=== PATIENT | male | born 1960 | race Caucasian/White ===

== ENCOUNTER 2021-08-28 06:30 | Inpatient (IN) ==
[2021-08-28] MEDS ORDERED: *HR* FentaNYL (PF) 100 MCG/2 ML VIAL IVP PRN (06:59)
[2021-08-28] MEDS ORDERED: CeFAZolin Syr 2,000MG/20 ML 2,000 MG/20 ML SYRINGE IVPB ONE (07:13)
[2021-08-28] MEDS ORDERED: Ringers Solution, Lactated 1,000 ML IVC SCH ×2 (07:15→07:45)
[2021-08-28] MEDS ORDERED: *HR* Rocuronium Bromide 50 MG/5 ML VIAL ONE ×2 (07:23→09:30)
[2021-08-28] MEDS ORDERED: *HR* Midazolam HCl 2 MG/2 ML VIAL ONE (07:23)
[2021-08-28] MEDS ORDERED: *HR* Succinylcholine 200 MG/10 ML VIAL IVP ONE (07:23)
[2021-08-28] MEDS ORDERED: *HR* FentaNYL (PF) 100 MCG/2 ML VIAL ONE ×2 (07:23→08:29)
[2021-08-28] MEDS ORDERED: Ondansetron 4 MG/2 ML VIAL ONE (07:23)
[2021-08-28] MEDS ORDERED: Lidocaine HCL 4 ML Topical Solution (Laryng-O-Jet Kit Sterile Pak) TP ONE (07:23)
[2021-08-28] MEDS ORDERED: Lidocaine -MPF 2% 5 ML VIAL ONE (07:23)
[2021-08-28] MEDS ORDERED: *HR* Propofol 200 MG/20 ML VIAL IVP ONE (07:24)
[2021-08-28] MEDS: *HR* HYDROmorphone PF 0.5 MG/0.5 ML SYRINGE IVP PRN ×4 (10:09→10:37)
[2021-08-28] MEDS ORDERED: 0.9 % Sodium Chloride 1,000 ML IVC SCH (11:39)
[2021-08-28] MEDS ORDERED: Naloxone 0.4 MG/ML INJ IVP PRN ×2 (11:39→13:11)
[2021-08-28] MEDS ORDERED: Ondansetron 4 MG/2 ML VIAL IVP PRN ×2 (11:39→13:11)
[2021-08-28] MEDS ORDERED: Ipratropium/Albuterol Neb 3 ML IH SCH (12:00)
[2021-08-28] MEDS: *HR* OxyCODONE/APAP 7.5/325 TABLET PO PRN ×2 (13:20→20:51)
[2021-08-28] MEDS: 0.9 % Sodium Chloride 1,000 ML IVC SCH (13:50)
[2021-08-28] MEDS ORDERED: *HR* Heparin 5,000 UNIT/ML VIAL SQ SCH (14:00)
[2021-08-28] MEDS: *HR* Heparin 5,000 UNIT/ML VIAL SQ SCH ×2 (14:46→20:51)
[2021-08-28] MEDS: Ipratropium/Albuterol Neb 3 ML IH SCH ×3 (15:49→23:55)
[2021-08-28] MEDS: gemfibroziL 600 MG TABLET PO SCH (20:41)
[2021-08-28] MEDS: Sennosides/Docusate Sodium TABLET PO SCH (20:41)
[2021-08-28] MEDS: Famotidine 20 MG TABLET PO SCH (20:42)
[2021-08-28] MEDS ORDERED: gemfibroziL 600 MG TABLET PO SCH (21:00)
[2021-08-28] MEDS ORDERED: Famotidine 20 MG TABLET PO SCH (21:00)
[2021-08-28] MEDS ORDERED: Sennosides/Docusate Sodium TABLET PO SCH (21:00)
[2021-08-29] MEDS: *HR* OxyCODONE/APAP 7.5/325 TABLET PO PRN ×5 (02:25→23:46)
[2021-08-29 02:29] LABS: Hematocrit 46.6 % (37.5-50.1); Hemoglobin 16.4 g/dL (12.9-16.9); Mean Corpuscular HGB Conc 35.2 g/dL (31.6-35.5); Mean Corpuscular Hemoglobin 31.4 pg (28.0-33.3); Mean Corpuscular Volume 89.1 fL (83.0-100.0); Platelet Count 237 K/mcL (140-400); Red Blood Count 5.23 M/mcL (4.19-5.50); Red Cell Distribution Width 12.3 % (11.5-14.5)
[2021-08-29] MEDS: 0.9 % Sodium Chloride 1,000 ML IVC SCH (02:31)
[2021-08-29 02:50] LABS: BUN/Creatinine Ratio 16 (6-26); Blood Urea Nitrogen 12 mg/dL (8-23); Calcium 9.1 mg/dL (8.6-10.3); Carbon Dioxide 26 mEq/L (23-29); Chloride 102 mEq/L (98-107); Glucose 130 mg/dL (70-105); Magnesium 2.2 mg/dL (1.6-2.6); Osmolality,Calculated 288 (280-300); Potassium 3.7 mEq/L (3.5-5.1); Sodium 138 mEq/L (136-145); eGFR For African Americans > 60 (> 60); eGFR For Non-African Americans > 60 (> 60)
[2021-08-29] MEDS: Ipratropium/Albuterol Neb 3 ML IH SCH ×6 (04:11→23:19)
[2021-08-29] MEDS: *HR* Heparin 5,000 UNIT/ML VIAL SQ SCH ×3 (05:08→21:35)
[2021-08-29] MEDS: *HR* Metformin 500 MG TABLET PO SCH ×2 (08:18→16:51)
[2021-08-29] MEDS: hydroCHLOROthiazide 25 MG TABLET PO SCH (08:18)
[2021-08-29] MEDS: gemfibroziL 600 MG TABLET PO SCH ×2 (08:18→21:35)
[2021-08-29] MEDS: Sennosides/Docusate Sodium TABLET PO SCH ×2 (08:19→21:35)
[2021-08-29] MEDS: Famotidine 20 MG TABLET PO SCH ×2 (08:19→21:35)
[2021-08-29] MEDS: Aspirin Enteric Coated 81 MG Tablet PO SCH (08:19)
[2021-08-29] MEDS: polyethylene glycoL 3350 17 GM POWD.PACK PO SCH (08:20)
[2021-08-29] MEDS ORDERED: Azithromycin 250 MG TABLET PO SCH ×2 (09:00)
[2021-08-29] MEDS ORDERED: predniSONE 20 MG TABLET PO SCH ×2 (09:00)
[2021-08-29] MEDS ORDERED: *HR* Metformin 500 MG TABLET PO SCH (09:00)
[2021-08-29] MEDS ORDERED: Aspirin Enteric Coated 81 MG Tablet PO SCH (09:00)
[2021-08-29] MEDS ORDERED: hydroCHLOROthiazide 25 MG TABLET PO SCH (09:00)
[2021-08-29] MEDS ORDERED: polyethylene glycoL 3350 17 GM POWD.PACK PO SCH (09:00)
[2021-08-29] MEDS: Acetylcysteine 10% 2 ML INHSOL IH SCH ×3 (16:03→23:19)
[2021-08-29] MEDS: Nicotine 21 MG PATCH.TD24 TD SCH (16:51)
[2021-08-29] MEDS ORDERED: methylPREDNISolone 125 MG/2 ML VIAL IVP STA (17:16)
[2021-08-29] MEDS ORDERED: methylPREDNISolone 125 MG/2 ML VIAL ONE (17:17)
[2021-08-29 17:47] LABS: Basophils # 0.1 K/mcL (0.0-0.2); Basophils % 0.7 %; Eosinophils % 0.2 %; Hematocrit 50.8 % (37.5-50.1); Hemoglobin 17.3 g/dL (12.9-16.9); Immature Granulocytes % 0.5 % (0-4); Lymphocytes # 1.8 K/mcL (0.6-4.6); Lymphocytes % 18.1 %; Mean Corpuscular HGB Conc 34.1 g/dL (31.6-35.5); Mean Corpuscular Hemoglobin 30.1 pg (28.0-33.3); Mean Corpuscular Volume 88.3 fL (83.0-100.0); Mean Platelet Volume 9.6 fL (9.4-12.4); Monocytes # 1.2 K/mcL (0.0-1.3); Monocytes % 12.1 %; Neutrophils # 6.8 K/mcL (1.6-8.9); Platelet Count 215 K/mcL (140-400); Red Blood Count 5.75 M/mcL (4.19-5.50); Red Cell Distribution Width 12.5 % (11.5-14.5); Segmented Neutrophils % 68.4 %
[2021-08-29 18:10] LABS: Alanine Aminotransferase 18 Units/L (7-52); Albumin 4.7 g/dL (3.5-5.7); Albumin/Globulin Ratio 1.7 (1.1-2.2); Alkaline Phosphatase 82 Units/L (34-104); Aspartate Amino Transferase 14 Units/L (13-39); BUN/Creatinine Ratio 16 (6-26); Bilirubin,Direct 0.2 mg/dL (0.0-0.2); Bilirubin,Indirect 0.4 mg/dL (0.0-1.0); Bilirubin,Total 0.6 mg/dL (0.3-1.0); Blood Urea Nitrogen 12 mg/dL (8-23); Calcium 9.3 mg/dL (8.6-10.3); Carbon Dioxide 25 mEq/L (23-29); Chloride 101 mEq/L (98-107); Globulin 2.8 g/dL (2.4-3.5); Glucose 135 mg/dL (70-105); Osmolality,Calculated 284 (280-300); Potassium 3.5 mEq/L (3.5-5.1); Sodium 136 mEq/L (136-145); Total Protein 7.5 g/dL (6.4-8.9); Troponin I < 0.03 ng/mL (< 0.04); eGFR For African Americans > 60 (> 60); eGFR For Non-African Americans > 60 (> 60)
[2021-08-30] MEDS: Acetylcysteine 10% 2 ML INHSOL IH SCH ×5 (03:36→20:00)
[2021-08-30] MEDS: Ipratropium/Albuterol Neb 3 ML IH SCH ×5 (03:37→20:02)
[2021-08-30] MEDS: *HR* OxyCODONE/APAP 7.5/325 TABLET PO PRN ×3 (04:32→16:48)
[2021-08-30] MEDS: *HR* Heparin 5,000 UNIT/ML VIAL SQ SCH ×3 (04:33→21:15)
[2021-08-30] MEDS: hydroCHLOROthiazide 25 MG TABLET PO SCH (08:21)
[2021-08-30] MEDS: polyethylene glycoL 3350 17 GM POWD.PACK PO SCH (08:21)
[2021-08-30] MEDS: *HR* Metformin 500 MG TABLET PO SCH ×2 (08:21→16:48)
[2021-08-30] MEDS: gemfibroziL 600 MG TABLET PO SCH ×2 (08:22→20:11)
[2021-08-30] MEDS: Famotidine 20 MG TABLET PO SCH ×2 (08:22→20:11)
[2021-08-30] MEDS: Sennosides/Docusate Sodium TABLET PO SCH ×2 (08:22→20:11)
[2021-08-30] MEDS: Aspirin Enteric Coated 81 MG Tablet PO SCH (08:23)
[2021-08-30] MEDS: Nicotine 21 MG PATCH.TD24 TD SCH (08:23)
[2021-08-30 14:48] LABS: BUN/Creatinine Ratio 23 (6-26); Blood Urea Nitrogen 15 mg/dL (8-23); Calcium 9.8 mg/dL (8.6-10.3); Carbon Dioxide 23 mEq/L (23-29); Chloride 104 mEq/L (98-107); Glucose 135 mg/dL (70-105); Magnesium 2.2 mg/dL (1.6-2.6); Osmolality,Calculated 291 (280-300); Potassium 4.5 mEq/L (3.5-5.1); Sodium 139 mEq/L (136-145); eGFR For African Americans > 60 (> 60); eGFR For Non-African Americans > 60 (> 60)
[2021-08-30] MEDS: Baclofen 10 MG TABLET PO SCH (20:11)
[2021-08-31] MEDS: Ipratropium/Albuterol Neb 3 ML IH SCH ×7 (00:04→23:50)
[2021-08-31] MEDS: Acetylcysteine 10% 2 ML INHSOL IH SCH ×5 (00:04→15:47)
[2021-08-31] MEDS: *HR* OxyCODONE/APAP 7.5/325 TABLET PO PRN ×5 (01:11→23:01)
[2021-08-31] MEDS: *HR* Heparin 5,000 UNIT/ML VIAL SQ SCH ×3 (05:27→20:38)
[2021-08-31 06:34] LABS: Hematocrit 45.9 % (37.5-50.1); Hemoglobin 16.1 g/dL (12.9-16.9); Mean Corpuscular HGB Conc 35.1 g/dL (31.6-35.5); Mean Corpuscular Hemoglobin 30.5 pg (28.0-33.3); Mean Corpuscular Volume 86.9 fL (83.0-100.0); Mean Platelet Volume 9.7 fL (9.4-12.4); Platelet Count 215 K/mcL (140-400); Red Blood Count 5.28 M/mcL (4.19-5.50); Red Cell Distribution Width 12.5 % (11.5-14.5); White Blood Count 6.5 K/mcL (4.3-11.1)
[2021-08-31 06:45] LABS: BUN/Creatinine Ratio 24 (6-26); Blood Urea Nitrogen 16 mg/dL (8-23); Calcium 9.3 mg/dL (8.6-10.3); Carbon Dioxide 26 mEq/L (23-29); Chloride 102 mEq/L (98-107); Glucose 116 mg/dL (70-105); Magnesium 1.9 mg/dL (1.6-2.6); Osmolality,Calculated 288 (280-300); Potassium 3.4 mEq/L (3.5-5.1); Sodium 138 mEq/L (136-145); eGFR For African Americans > 60 (> 60); eGFR For Non-African Americans > 60 (> 60)
[2021-08-31] MEDS ORDERED: Potassium Chloride Elixir 20 MEQ/15 ML UDC PO ONE (07:12)
[2021-08-31] MEDS: *HR* Metformin 500 MG TABLET PO SCH ×2 (07:30→17:21)
[2021-08-31] MEDS: Baclofen 10 MG TABLET PO SCH ×2 (10:18→20:38)
[2021-08-31] MEDS: gemfibroziL 600 MG TABLET PO SCH ×2 (10:18→20:38)
[2021-08-31] MEDS: Famotidine 20 MG TABLET PO SCH ×2 (10:19→20:38)
[2021-08-31] MEDS: Aspirin Enteric Coated 81 MG Tablet PO SCH (10:19)
[2021-08-31] MEDS: hydroCHLOROthiazide 25 MG TABLET PO SCH (10:19)
[2021-08-31] MEDS: Sennosides/Docusate Sodium TABLET PO SCH ×2 (10:19→20:38)
[2021-08-31] MEDS: polyethylene glycoL 3350 17 GM POWD.PACK PO SCH (10:20)
[2021-08-31] MEDS: Nicotine 21 MG PATCH.TD24 TD SCH (11:08)
[2021-09-01] MEDS: Ipratropium/Albuterol Neb 3 ML IH SCH ×6 (04:22→23:34)
[2021-09-01] MEDS: *HR* Heparin 5,000 UNIT/ML VIAL SQ SCH ×3 (05:22→21:37)
[2021-09-01] MEDS: Sennosides/Docusate Sodium TABLET PO SCH ×2 (08:05→20:04)
[2021-09-01] MEDS: hydroCHLOROthiazide 25 MG TABLET PO SCH (08:06)
[2021-09-01] MEDS: *HR* OxyCODONE/APAP 7.5/325 TABLET PO PRN ×3 (08:07→22:32)
[2021-09-01] MEDS: Baclofen 10 MG TABLET PO SCH ×2 (08:07→19:50)
[2021-09-01] MEDS: Famotidine 20 MG TABLET PO SCH ×2 (08:07→19:51)
[2021-09-01] MEDS: Nicotine 21 MG PATCH.TD24 TD SCH (08:09)
[2021-09-01] MEDS: polyethylene glycoL 3350 17 GM POWD.PACK PO SCH (08:09)
[2021-09-01] MEDS: gemfibroziL 600 MG TABLET PO SCH ×2 (08:17→19:50)
[2021-09-01] MEDS ORDERED: Nitroglycerin 0.4 MG TAB.SUBL SL PRN (12:05)
[2021-09-01] MEDS ORDERED: *HR* HYDROmorphone PF 0.5 MG/0.5 ML SYRINGE IVP PRN (12:05)
[2021-09-01] MEDS ORDERED: Albuterol 2.5 MG/3 ML NEBULIZER IH PRN (12:05)
[2021-09-01] MEDS ORDERED: Naloxone 0.4 MG/ML INJ IVP PRN ×2 (12:05→18:14)
[2021-09-01] MEDS ORDERED: Ondansetron 4 MG/2 ML VIAL IVP PRN ×2 (12:05→18:14)
[2021-09-01] MEDS ORDERED: *HR* FentaNYL (PF) 100 MCG/2 ML VIAL IVP PRN (12:05)
[2021-09-01] MEDS ORDERED: ceFAZolin 2,000 MG in Water for inj. (sterile) 20 ML IVP ONE (12:53)
[2021-09-01] MEDS ORDERED: *HR* Propofol 200 MG/20 ML VIAL IVP ONE (12:54)
[2021-09-01] MEDS ORDERED: Lidocaine -MPF 2% 5 ML VIAL ONE (12:54)
[2021-09-01] MEDS ORDERED: *HR* Succinylcholine 200 MG/10 ML VIAL IVP ONE (12:54)
[2021-09-01] MEDS ORDERED: *HR* Rocuronium Bromide 50 MG/5 ML VIAL ONE ×2 (12:54→13:59)
[2021-09-01] MEDS ORDERED: *HR* Midazolam HCl 2 MG/2 ML VIAL ONE (12:54)
[2021-09-01] MEDS ORDERED: Lidocaine HCL 4 ML Topical Solution (Laryng-O-Jet Kit Sterile Pak) TP ONE (12:54)
[2021-09-01] MEDS ORDERED: Ondansetron 4 MG/2 ML VIAL ONE (12:54)
[2021-09-01] MEDS ORDERED: *HR* FentaNYL (PF) 100 MCG/2 ML VIAL ONE (12:54)
[2021-09-01] MEDS ORDERED: *HR* Vasopressin 20 UNIT/ML VIAL ONE (12:59)
[2021-09-01] MEDS ORDERED: *HR* HYDROMORPHONE 2 MG/ML VIAL ONE (13:45)
[2021-09-01] MEDS ORDERED: Acetaminophen IV 1,000 MG/100 ML BAG IVPB ONE (14:21)
[2021-09-01] MEDS ORDERED: Sugammadex Sodium 200 MG/2 ML VIAL IV ONE (14:50)
[2021-09-01] MEDS: Aspirin Enteric Coated 81 MG Tablet PO SCH (16:52)
[2021-09-01] MEDS: *HR* Metformin 500 MG TABLET PO SCH ×2 (16:52→19:25)
[2021-09-01] MEDS ORDERED: CeFAZolin 2,000 MG/120 ML BAG IVPB SCH (19:00)
[2021-09-01] MEDS ORDERED: ceFAZolin 1,000 MG in 0.9 % Sodium Chloride 10 ML IVP SCH (19:00)
[2021-09-01] MEDS: CeFAZolin 2,000 MG/120 ML BAG IVPB SCH (19:49)
[2021-09-02] MEDS: *HR* OxyCODONE/APAP 7.5/325 TABLET PO PRN ×4 (03:11→19:52)
[2021-09-02] MEDS: CeFAZolin 2,000 MG/120 ML BAG IVPB SCH ×3 (03:11→19:51)
[2021-09-02] MEDS: Ipratropium/Albuterol Neb 3 ML IH SCH ×6 (03:31→23:07)
[2021-09-02 03:38] LABS: Basophils % 0.3 %; Eosinophils % 0.1 %; Hematocrit 46.6 % (37.5-50.1); Hemoglobin 16.7 g/dL (12.9-16.9); Immature Granulocytes % 0.6 % (0-4); Lymphocytes # 1.4 K/mcL (0.6-4.6); Lymphocytes % 10.1 %; Mean Corpuscular HGB Conc 35.8 g/dL (31.6-35.5); Mean Corpuscular Hemoglobin 30.9 pg (28.0-33.3); Mean Corpuscular Volume 86.3 fL (83.0-100.0); Mean Platelet Volume 10.2 fL (9.4-12.4); Monocytes # 1.4 K/mcL (0.0-1.3); Monocytes % 10.1 %; Neutrophils # 10.8 K/mcL (1.6-8.9); Platelet Count 267 K/mcL (140-400); Red Cell Distribution Width 11.9 % (11.5-14.5); Segmented Neutrophils % 78.8 %
[2021-09-02 03:41] LABS: White Blood Count 13.7 K/mcL (4.3-11.1)
[2021-09-02 04:00] LABS: BUN/Creatinine Ratio 20 (6-26); Blood Urea Nitrogen 13 mg/dL (8-23); Calcium 9.3 mg/dL (8.6-10.3); Carbon Dioxide 21 mEq/L (23-29); Chloride 100 mEq/L (98-107); Glucose 95 mg/dL (70-105); Osmolality,Calculated 284 (280-300); Potassium 3.3 mEq/L (3.5-5.1); Sodium 137 mEq/L (136-145); eGFR For African Americans > 60 (> 60); eGFR For Non-African Americans > 60 (> 60)
[2021-09-02] MEDS: *HR* Heparin 5,000 UNIT/ML VIAL SQ SCH ×3 (05:19→19:53)
[2021-09-02] MEDS ORDERED: Potassium Chloride Elixir 20 MEQ/15 ML UDC PO ONE (07:19)
[2021-09-02] MEDS: Famotidine 20 MG TABLET PO SCH ×2 (08:19→19:52)
[2021-09-02] MEDS: polyethylene glycoL 3350 17 GM POWD.PACK PO SCH (08:19)
[2021-09-02] MEDS: Aspirin Enteric Coated 81 MG Tablet PO SCH (08:20)
[2021-09-02] MEDS: Baclofen 10 MG TABLET PO SCH ×2 (08:21→19:52)
[2021-09-02] MEDS: gemfibroziL 600 MG TABLET PO SCH ×2 (08:21→19:51)
[2021-09-02] MEDS: Sennosides/Docusate Sodium TABLET PO SCH ×2 (08:21→19:52)
[2021-09-02] MEDS: hydroCHLOROthiazide 25 MG TABLET PO SCH (08:22)
[2021-09-02] MEDS: Nicotine 21 MG PATCH.TD24 TD SCH (08:22)
[2021-09-02] MEDS: 0.9 % Sodium Chloride 1,000 ML IVC SCH (13:46)
[2021-09-03] MEDS: CeFAZolin 2,000 MG/120 ML BAG IVPB SCH ×2 (03:07→10:12)
[2021-09-03] MEDS: 0.9 % Sodium Chloride 1,000 ML IVC SCH (03:08)
[2021-09-03] MEDS: Ipratropium/Albuterol Neb 3 ML IH SCH ×5 (04:11→20:24)
[2021-09-03 04:15] LABS: Hematocrit 42.3 % (37.5-50.1); Hemoglobin 14.8 g/dL (12.9-16.9); Mean Corpuscular Volume 88.5 fL (83.0-100.0); Platelet Count 241 K/mcL (140-400); Red Blood Count 4.78 M/mcL (4.19-5.50); Red Cell Distribution Width 12.2 % (11.5-14.5); White Blood Count 10.5 K/mcL (4.3-11.1)
[2021-09-03] MEDS: *HR* OxyCODONE/APAP 7.5/325 TABLET PO PRN ×5 (04:27→22:45)
[2021-09-03 04:58] LABS: BUN/Creatinine Ratio 19 (6-26); Blood Urea Nitrogen 12 mg/dL (8-23); Carbon Dioxide 23 mEq/L (23-29); Chloride 101 mEq/L (98-107); Glucose 114 mg/dL (70-105); Magnesium 1.9 mg/dL (1.6-2.6); Osmolality,Calculated 283 (280-300); Potassium 3.4 mEq/L (3.5-5.1); Sodium 136 mEq/L (136-145); eGFR For African Americans > 60 (> 60); eGFR For Non-African Americans > 60 (> 60)
[2021-09-03] MEDS: *HR* Heparin 5,000 UNIT/ML VIAL SQ SCH ×3 (05:21→20:34)
[2021-09-03] MEDS: Sennosides/Docusate Sodium TABLET PO SCH ×2 (08:36→20:34)
[2021-09-03] MEDS: Aspirin Enteric Coated 81 MG Tablet PO SCH (08:36)
[2021-09-03] MEDS: hydroCHLOROthiazide 25 MG TABLET PO SCH (08:36)
[2021-09-03] MEDS: gemfibroziL 600 MG TABLET PO SCH ×2 (08:36→20:34)
[2021-09-03] MEDS: Baclofen 10 MG TABLET PO SCH ×2 (08:37→20:34)
[2021-09-03] MEDS: polyethylene glycoL 3350 17 GM POWD.PACK PO SCH (08:37)
[2021-09-03] MEDS: Famotidine 20 MG TABLET PO SCH ×2 (08:37→20:34)
[2021-09-03] MEDS: Nicotine 21 MG PATCH.TD24 TD SCH (08:38)
[2021-09-04] MEDS: Ipratropium/Albuterol Neb 3 ML IH SCH ×4 (00:25→11:22)
[2021-09-04 02:22] VITALS: TEMP 97.9
[2021-09-04] MEDS: *HR* OxyCODONE/APAP 7.5/325 TABLET PO PRN ×2 (04:20→11:41)
[2021-09-04] MEDS: *HR* Heparin 5,000 UNIT/ML VIAL SQ SCH (06:35)
[2021-09-04] MEDS: Sennosides/Docusate Sodium TABLET PO SCH (08:36)
[2021-09-04] MEDS: Famotidine 20 MG TABLET PO SCH (08:36)
[2021-09-04] MEDS: polyethylene glycoL 3350 17 GM POWD.PACK PO SCH (08:36)
[2021-09-04] MEDS: gemfibroziL 600 MG TABLET PO SCH (08:36)
[2021-09-04] MEDS: Baclofen 10 MG TABLET PO SCH (08:36)
[2021-09-04] MEDS: Nicotine 21 MG PATCH.TD24 TD SCH (08:37)
[2021-09-04] MEDS: Aspirin Enteric Coated 81 MG Tablet PO SCH (08:37)
[2021-09-04] MEDS: hydroCHLOROthiazide 25 MG TABLET PO SCH (08:37)
[2021-09-04 13:48] VITALS: BP 156/83; PULSE 98; O2SAT 95
== END 2021-09-04 14:05 | disposition home or self-care (01) | DRG 168 ==
LOC: SAMDAY 06:30 → 2NNU 07:42 → ICNU 11:24 → 2NNU 19:27
PROVIDERS: ADMIT Thoracic Surgery (Cardiothoracic Vascular Surgery); ATTEND Thoracic Surgery (Cardiothoracic Vascular Surgery)